=== PATIENT | male | born 1985 | race Hispanic/Latino ===

== ENCOUNTER 2016-11-19 07:31 | Emergency (ER) | payer OTHER ==
[2016-11-19 07:41] VITALS: O2SAT 100
[2016-11-19] MEDS ORDERED: Sodium Chloride 0.9% 1,000 ML IV STA (07:54)
[2016-11-19 07:57] VITALS: RESP 16
--- NOTE | 2016-11-19 07:57 | ED PDOC ---
HPI: Chest Pain Time Seen by Provider: 11/19/16 07:34 Chief Complaint (Nursing): Chest Pain Chief Complaint (Provider): chest pain History Per: Patient History/Exam Limitations: no limitations Onset/Duration Of Symptoms: Days (Today morning) Current Symptoms Are (Timing): Still Present Additional Complaint(s): Chest tightness when he woke up with palpitations. Pain is gone now. Did not take anything for it. No weakness, numbness, tingles, dyspnea, headaches. Has L calf zinging pain. No swelling or injury. No long distance travel or hormone tx. No back pain. No vision changes or headache. Had etoh and marijuana yesterday. Past Medical History Reviewed: Nursing Documentation, Vital Signs Vital Signs: Last Vital Signs Temp 97.8 F 11/19/16 07:40 Pulse 103 H 11/19/16 08:02 Resp 16 11/19/16 07:56 BP 135/63 11/19/16 08:02 Pulse Ox 100 11/19/16 07:59 - Medical History PMH: No Chronic Diseases - Surgical History Surgical History: No Surg Hx - Family History Family History: States: Unknown Family Hx - Social History Alcohol: Occasional Drugs: Cannabis - Allergies Allergies/Adverse Reactions: Allergies Allergy/AdvReac Type Severity Reaction Status Date / Time No Known Allergies Allergy Verified 11/19/16 07:53 Review of Systems ROS Statement: Except As Marked, All Systems Reviewed And Found Negative Cardiovascular: Positive for: Chest Pain, Palpitations Physical Exam - Reviewed Nursing Documentation Reviewed: Yes Vital Signs Reviewed: Yes - Physical Exam Appears: Positive for: Well, Non-toxic, No Acute Distress Head Exam: Positive for: ATRAUMATIC, NORMAL INSPECTION, NORMOCEPHALIC Skin: Positive for: Normal Color, Warm, DRY Eye Exam: Positive for: EOMI, Normal appearance, PERRL ENT: Positive for: Normal ENT Inspection Neck: Positive for: Normal, Painless ROM Cardiovascular/Chest: Positive for: Regular Rate, Rhythm, Chest Non Tender. Negative for: Edema Respiratory: Positive for: CNT, Normal Breath Sounds Gastrointestinal/Abdominal: Positive for: Normal Exam, Bowel Sounds, Soft. Negative for: Tenderness Back: Positive for: Normal Inspection. Negative for: L CVA Tenderness, R CVA Tenderness Extremity: Positive for: Normal ROM. Negative for: Tenderness, Pedal Edema Neurologic/Psych: Positive for: Alert, Oriented - Laboratory Results Result Diagrams: 11/19/16 08:03 11/19/16 08:03 Interpretation Of Abn Labs: 3.2 k - ECG ECG: Positive for: Interpreted By Me, Viewed By Me ECG Rhythm: Positive for: Normal QRS, Normal ST Segment, Sinus Rhythm O2 Sat by Pulse Oximetry: 100 - Progress ED Course And Treament: 1057: Stable. AAOx3. Pain free. Tolerated. PO. Fu with pcp. Disposition - Clinical Impression Clinical Impression: Chest pain, Palpitations - Patient ED Disposition Is Patient to be Admitted: No Counseled Patient/Family Regarding: Studies Performed, Diagnosis, Need For Followup - Disposition Referrals: [facility] [Outside] - 11/22/16 Disposition: Routine/Home Disposition Time: 10:58 Condition: STABLE Additional Instructions: Return if not better in 3 days. Instructions: Chest Pain (ED), Palpitations (ED)
[2016-11-19 08:12] LABS: BASO # 0.1 K/uL (0.0-0.2); BASO % 1.1 % (0.0-2.0); EOS # 0.3 K/uL (0.0-0.7); EOS % 4.7 % (0.0-4.0); HEMATOCRIT 42.9 % (35.0-51.0); LYMPH # 3.8 K/uL (1.0-4.3); LYMPH % 54.5 % (20.0-40.0); MEAN CELL VOLUME 85.7 fl (80.0-94.0); MEAN CORPUSCULAR HEMOGLOBIN 29.6 pg (27.0-31.0); MEAN CORPUSCULAR HGB CONC 34.5 g/dL (33.0-37.0); MEAN PLATELET VOLUME 7.2 fl (7.2-11.7); MONO # 0.6 K/uL (0.0-0.8); MONO % 9.1 % (0.0-10.0); NEUT # 2.1 K/uL (1.8-7.0); NEUT % 30.6 % (50.0-75.0); NRBC % 0.1 % (0.0-0.0); PLATELET COUNT 311 K/uL (130-400); RED CELL DISTRIBUTION WIDTH 13.2 % (11.5-14.5)
[2016-11-19 08:29] LABS: ALB/GLOB RATIO 1.3 (1.0-2.1); ALKALINE PHOSPHATASE 105 U/L (38-126); ALT/SGPT 46 U/L (21-72); AST/SGOT 42 U/L (17-59); BILIRUBIN,TOTAL 0.5 mg/dl (0.2-1.3); BLOOD UREA NITROGEN 12 mg/dl (9-20); CARBON DIOXIDE 25 mmol/L (22-30); CHLORIDE 106 mmol/L (98-107); GFR AFRICAN-AMERICAN > 60; GLUCOSE,RANDOM 125 mg/dL (75-110); LIPASE 116 U/L (23-300); POTASSIUM 3.2 MMOL/L (3.6-5.0); SODIUM 145 mmol/l (132-148); TOTAL PROTEIN 7.6 G/DL (6.3-8.2)
[2016-11-19 09:19] LABS: BASOPHIL 1 % (0-2); EOSINOPHIL 4 % (0-7); NEUTROPHIL 24 % (42-75); REACTIVE LYMPHOCYTES 4 % (0-0); TOTAL CELLS COUNTED 100
[2016-11-19 09:21] LABS: LARGE PLATELETS PRESENT
--- NOTE | 2016-11-19 09:22 | RAD ---
HISTORY: chest pain COMPARISON: Comparison chest 03/04/2012 1009 FINDINGS: LUNGS: No active pulmonary disease. PLEURA: No significant pleural effusion identified, no pneumothorax apparent. CARDIOVASCULAR: Heart appears upper limits of normal/ borderline enlarged OSSEOUS STRUCTURES: No significant abnormalities. VISUALIZED UPPER ABDOMEN: Normal. OTHER FINDINGS: None. IMPRESSION: No active disease.
--- NOTE | 2016-11-19 10:17 | US ---
PROCEDURE: Bilateral lower extremity venous duplex Doppler. HISTORY: Rule out DVT COMPARISON: None available. TECHNIQUE: Bilateral common femoral, superficial femoral, popliteal and posterior tibial veins were evaluated. Flow was assessed with color Doppler, compressibility, assessment of phasic flow and augmentation response. FINDINGS: COMMON FEMORAL VEIN: Right CFV: Unremarkable. Left CFV: Unremarkable. SUPERFICIAL FEMORAL VEIN: Right SFV: Unremarkable. Left SFV: Unremarkable. POPLITEAL VEIN: Right Popliteal: Unremarkable. Left Popliteal: Unremarkable. POSTERIOR TIBIAL VEIN: Right PTV: Unremarkable. Left PTV: Unremarkable. OTHER FINDINGS: None IMPRESSION: No evidence of acute DVT seen within the visualized deep veins right or left lower extremities.
[2016-11-19] MEDS ORDERED: Potassium Chloride 20 mEq ER Tab PO ONE ×2 (10:57→10:59)
[2016-11-19 11:11] VITALS: BP 140/77; PULSE 88; TEMP 97.6
--- NOTE | 2016-11-20 09:20 | CARD ---
APPROVED REPORT EKG Measurement Heart [id number] <Conclusion> Normal sinus rhythm Possible Left atrial enlargement Borderline ECG
== END 2016-11-19 11:13 | disposition home or self-care (01) ==
LOC: H.ER 07:31
DX: R07.9 Chest pain, unspecified (principal); R00.2 Palpitations